=== PATIENT | female | born 1950 ===

== ENCOUNTER 2025-03-09 01:56 | Outpatient (RCR) | payer MEDICARE, BC, SELFPAY ==
[2025-02-16 09:45] LABS: Abs Immature Grans 0.04 10^3/uL (0.0-0.06); HCT 44.0 % (36.0-46.0); HGB 14.4 g/dL (11.2-15.7); Immature Grans % 0.4 %; MCH 28.0 pg (27.0-33.0); MCHC 32.7 % (32.0-36.0); MCV 85 fL (80-95); MPV 9.4 fL (8.0-11.0); Platelet Count 267 10^3/uL (130-400); RBC 5.15 10^6/uL (3.93-5.22); RDW 12.7 % (11.7-14.6); RDW-SD 39.9 fL; WBC 11.18 10^3/uL (4.4-10.8)
[2025-02-16 10:25] LABS: ALT 28 U/L (14-59); AST 22 U/L (15-37); Albumin 3.8 g/dL (3.4-5.0); Alkaline Phosphatase 66 U/L (46-116); Anion Gap 9.3 mmol/L (3-11); BUN 13 mg/dL (7-18); Bilirubin, Total 1.1 mg/dL (0.2-1.0); CO2 26.7 mmol/L (21.0-32.0); Calcium 8.9 mg/dL (8.5-10.1); Chloride 103 mmol/L (98-107); Glucose 104 mg/dL (74-106); Magnesium 2.1 mg/dL (1.8-2.4); Potassium 4.2 mmol/L (3.5-5.1); Sodium 139 mmol/L (136-145); TSH 1.91 uIU/mL (0.36-3.74); Total Protein 7.7 g/dL (6.4-8.2)
[2025-02-16] MEDS: Normal Saline Flush 10 ML SYR IVP (11:02)
[2025-03-09] MEDS: Normal Saline Flush 10 ML SYR IVP (10:35)
[2025-03-09 11:21] LABS: Abs Immature Grans 0.01 10^3/uL (0.0-0.06); HCT 39.8 % (36.0-46.0); HGB 13.0 g/dL (11.2-15.7); Immature Grans % 0.2 %; MCH 28.3 pg (27.0-33.0); MCHC 32.7 % (32.0-36.0); MCV 87 fL (80-95); MPV 8.9 fL (8.0-11.0); Platelet Count 214 10^3/uL (130-400); RBC 4.60 10^6/uL (3.93-5.22); RDW 12.8 % (11.7-14.6); RDW-SD 39.9 fL; WBC 6.04 10^3/uL (4.4-10.8)
[2025-03-09 11:40] LABS: ALT 28 U/L (14-59); AST 20 U/L (15-37); Albumin 3.3 g/dL (3.4-5.0); Alkaline Phosphatase 64 U/L (46-116); Anion Gap 8.8 mmol/L (3-11); BUN 10 mg/dL (7-18); Bilirubin, Total 0.6 mg/dL (0.2-1.0); CO2 27.2 mmol/L (21.0-32.0); Calcium 9.0 mg/dL (8.5-10.1); Chloride 104 mmol/L (98-107); Glucose 98 mg/dL (74-106); Magnesium 2.2 mg/dL (1.8-2.4); Potassium 4.1 mmol/L (3.5-5.1); Sodium 140 mmol/L (136-145); Total Protein 7.4 g/dL (6.4-8.2)
[2025-03-09 12:00] LABS: Cholesterol 175 mg/dL (<200); HDL Cholesterol 51 mg/dL (>or=50)
[2025-03-09 12:09] LABS: TSH 1.61 uIU/mL (0.36-3.74)
[2025-03-09 12:11] LABS: Hemoglobin A1C 6.1 % (<5.7)
== END 2025-03-12 23:59 | disposition home or self-care (01) ==
LOC: INF 01:56
PROVIDERS: Nurse Practitioner; Visit Provider Internal Medicine Medical Oncology
DX: C34.11 Malignant neoplasm of upper lobe, right bronchus or lung (principal); Z79.899 Other long term (current) drug therapy; Z45.2 Encounter for adjustment and management of vascular access device
CPT/HCPCS: 36591; 80053; 80061; 83036; 83735; 84439; 84443; 85025

== ENCOUNTER 2025-03-29 02:21 | Outpatient (RCR) | payer MEDICARE, BC, SELFPAY ==
[2025-03-29 09:59] LABS: Abs Immature Grans 0.01 10^3/uL (0.0-0.06); HCT 37.9 % (36.0-46.0); HGB 12.8 g/dL (11.2-15.7); Immature Grans % 0.2 %; MCH 29.6 pg (27.0-33.0); MCHC 33.8 % (32.0-36.0); MCV 88 fL (80-95); MPV 8.5 fL (8.0-11.0); Platelet Count 222 10^3/uL (130-400); RBC 4.32 10^6/uL (3.93-5.22); RDW 13.9 % (11.7-14.6); RDW-SD 42.9 fL; WBC 4.61 10^3/uL (4.4-10.8)
[2025-03-29 10:22] LABS: Magnesium 1.8 mg/dL (1.6-2.6)
[2025-03-29 10:23] LABS: ALT 27 U/L (10-49); AST 26 U/L (<34); Albumin 4.2 g/dL (3.4-5.0); Alkaline Phosphatase 53 U/L (46-116); Anion Gap 9.1 mmol/L (3-11); BUN 11 mg/dL (9-23); Bilirubin, Total 0.60 mg/dL (0.2-1.2); CO2 25.9 mmol/L (20.0-31.0); Calcium 9.0 mg/dL (8.3-10.6); Chloride 105 mmol/L (98-107); Glucose 99 mg/dL (74-106); Potassium 4.2 mmol/L (3.5-5.1); Sodium 140 mmol/L (136-145); Total Protein 6.9 g/dL (5.7-8.2)
[2025-03-29 10:24] LABS: TSH 1.28 uIU/mL (0.55-4.78)
[2025-03-29] MEDS: Normal Saline Flush 10 ML SYR IVP (10:31)
== END 2025-04-11 23:59 | disposition home or self-care (01) ==
LOC: INF 02:21
PROVIDERS: Visit Provider Internal Medicine Medical Oncology
DX: C34.11 Malignant neoplasm of upper lobe, right bronchus or lung (principal); Z79.899 Other long term (current) drug therapy; Z45.2 Encounter for adjustment and management of vascular access device
CPT/HCPCS: 36591; 80053; 83735; 84439; 84443; 85025

== ENCOUNTER 2025-04-27 01:04 | Outpatient (RCR) | payer MEDICARE, BC, SELFPAY ==
[2025-04-27 10:29] LABS: Abs Immature Grans 0.01 10^3/uL (0.0-0.06); HCT 35.4 % (36.0-46.0); HGB 11.8 g/dL (11.2-15.7); Immature Grans % 0.2 %; MCH 30.3 pg (27.0-33.0); MCHC 33.3 % (32.0-36.0); MCV 91 fL (80-95); MPV 8.7 fL (8.0-11.0); Platelet Count 202 10^3/uL (130-400); RBC 3.90 10^6/uL (3.93-5.22); RDW 15.9 % (11.7-14.6); RDW-SD 52.7 fL; WBC 5.56 10^3/uL (4.4-10.8)
[2025-04-27 10:54] LABS: Magnesium 2.0 mg/dL (1.6-2.6)
[2025-04-27] MEDS: Normal Saline Flush 10 ML SYR IVP (10:54)
[2025-04-27 10:59] LABS: ALT 18 U/L (10-49); AST 26 U/L (<34); Albumin 4.2 g/dL (3.2-5.0); Alkaline Phosphatase 52 U/L (46-116); Anion Gap 8.9 mmol/L (3-11); BUN 10 mg/dL (9-23); Bilirubin, Total 0.9 mg/dL (0.2-1.2); CO2 25.1 mmol/L (20.0-31.0); Calcium 9.0 mg/dL (8.3-10.6); Chloride 105 mmol/L (98-107); Glucose 101 mg/dL (74-106); Potassium 4.1 mmol/L (3.5-5.1); Sodium 139 mmol/L (136-145); TSH 0.99 uIU/mL (0.55-4.78); Total Protein 7.1 g/dL (5.7-8.2)
== END 2025-05-12 23:59 | disposition home or self-care (01) ==
LOC: INF 01:04
PROVIDERS: Visit Provider Internal Medicine Medical Oncology
DX: C79.31 Secondary malignant neoplasm of brain (principal); Z79.899 Other long term (current) drug therapy; Z45.2 Encounter for adjustment and management of vascular access device
CPT/HCPCS: 36591; 80053; 83735; 84439; 84443; 85025